=== PATIENT | male | born 1980 | race Caucasian/White ===

== ENCOUNTER 2021-01-30 17:23 | Inpatient (IN) | payer OTHER ==
[~2021-01-30] VITALS: Ht 180.3 cm; Wt 127.0 kg
[~2021-01-30 17:23] MED LIST: GABA600 PO; LISI20 PO; NAPR500 PO; RXHYD5325 PO; TRAM50 PO
[2021-01-30 18:26] LABS: BASOPHILS ABSOLUTE AUTO 0.07 K/mm3 (0.00-0.23); BASOPHILS PERCENT AUTO 1 % (0-2); EOSINOPHILS ABSOLUTE AUTO 0.42 K/mm3 (0.00-0.68); EOSINOPHILS PERCENT AUTO 4 % (0-6); Hematocrit 46.2 % (37.0-53.0); Hemoglobin 16.1 g/dL (13.5-17.5); IMMATURE GRAN PERCENT AUTO 1 % (0-1); LYMPHOCYTES ABSOLUTE AUTO 0.71 K/mm3 (0.84-5.20); LYMPHOCYTES PERCENT AUTO 6 % (21-46); MONOCYTES PERCENT AUTO 4 % (4-13); Mean Corpuscular HGB 34.8 pg (26.0-34.0); Mean Corpuscular HGB Conc 34.8 g/dL (31.5-36.5); Mean Corpuscular Volume 100 fL (80-100); Mean Platelet Volume 8.7 fL (9.1-12.4); NEUTROPHILS ABSOLUTE AUTO 9.48 K/mm3 (1.96-9.15); NEUTROPHILS PERCENT AUTO 84 % (41-73); Platelet Count 241 K/mm3 (150-400); RDW Coefficient Variation 13.5 % (11.7-14.2); RDW Standard Deviation 49.3 fL (35.1-46.3); Red Blood Cell Count 4.63 M/mm3 (4.30-5.90); White Blood Cell Count 11.28 K/mm3 (4.00-11.30)
[2021-01-30 18:53] LABS: Alanine Aminotransfer (ALT/SGP 146 U/L (12-78); Albumin, Blood 3.6 g/dL (3.4-5.0); Albumin/Globulin Ratio 0.8 (0.8-1.8); Alk Phos 181 U/L (50-136); Anion Gap 22 mmol/L (6-16); Aspartate Aminotrans (AST/SGOT 285 U/L (12-37); Bilirubin, Total 1.6 mg/dL (0.1-1.0); Blood Urea Nitrogen 11 mg/dL (8-24); Bun/Creatinine Ratio 12.5 (12.0-20.0); CO2, Blood 15 mmol/L (21-32); Calcium, Blood 9.1 mg/dL (8.5-10.1); Chloride, Blood 92 mmol/L (98-108); Creatinine, Blood 0.88 mg/dL (0.60-1.20); Globulin, Blood 4.5 g/dL (2.2-4.0); Glomerular Filtration Rate >60 (60-); Glucose, Blood 201 mg/dL (70-99); Potassium, Blood 3.8 mmol/L (3.5-5.5); Sodium, Blood 129 mmol/L (136-145); Total Protein, Blood 8.1 g/dL (6.4-8.2)
[2021-01-30 18:54] LABS: Troponin I <0.015 ng/mL (0.000-0.040)
[2021-01-30 20:46] LABS: Base Excess Venous -2.7 mmol/L; PCO2 Venous 32.4 mmHg (38-42); PO2 Venous 168 mmHg (38-42); pH Blood Venous 7.43 (7.34-7.37)
[2021-01-30 22:02] LABS: Magnesium, Blood 1.6 mg/dL (1.6-2.4); Phosphorus, Blood 3.1 mg/dL (2.5-4.9)
[2021-01-30 22:21] LABS: U Amphetamine Screen Not Detected; U Barbituate Screen Not Detected; U Benzodiazapine Screen Not Detected; U Buprenorphine Screen DETECTED; U Cannabinoids Screen Not Detected; U Cocaine Screen Not Detected; U Methadone Screen Not Detected; U Methamphetamine Screen Not Detected; U Opiates Screen Not Detected; U Oxycodone Screen Not Detected; U Phencyclidine Screen Not Detected; U Propoxyphene Screen Not Detected
[2021-01-30 23:10] LABS: Automated CSF RBC Count 0.016 M/mm3 (0-0); Automated CSF WBC Count 0.017 K/mm3 (0-5); RBC Count, CSF 16000 /mm3 (0-0); WBC Count, CSF 17 /mm3 (0-5)
[2021-01-30 23:25] LABS: Glucose, CSF 114 mg/dL (40-70)
[2021-01-30 23:30] LABS: Automated CSF RBC Count 0.068 M/mm3 (0-0); RBC Count, CSF 68000 /mm3 (0-0); WBC Count, CSF 140 /mm3 (0-5)
[2021-01-30 23:53] LABS: Appearance, CSF Cloudy (Clear); Color, CSF Red (No Color); Lymphocytes, CSF 18 % (40-80); Monocytes, CSF 11 % (15-45); Neutrophils, CSF 71 % (0-6)
[2021-01-30 23:55] LABS: Lymphocytes, CSF 7 % (40-80); Monocytes, CSF 1 % (15-45); Neutrophils, CSF 92 % (0-6)
[2021-01-30 23:56] LABS: Appearance, CSF Bloody (Clear); Color, CSF Red (No Color)
[2021-01-31 00:38] LABS: Cryptococcus Neoformans/Gattii Not Detected (NOT DETECT); Enterovirus Not Detected (NOT DETECT); Escherichia Coli K1 Not Detected (NOT DETECT); Haemophilus Influenza Not Detected (NOT DETECT); Herpes Simplex Virus 1 Not Detected (NOT DETECT); Herpes Simplex Virus 2 Not Detected (NOT DETECT); Human Herpesvirus 6 Not Detected (NOT DETECT); Human Parechovirus Not Detected (NOT DETECT); Listeria Monocytogenes Not Detected (NOT DETECT); Neisseria Meningitidis Not Detected (NOT DETECT); Streptococcus Agalactiae Not Detected (NOT DETECT); Streptococcus Pneumoniae Not Detected (NOT DETECT); Varicella Zoster Virus Not Detected (NOT DETECT)
[2021-01-31 01:52] LABS: BASOPHILS ABSOLUTE AUTO 0.06 K/mm3 (0.00-0.23); BASOPHILS PERCENT AUTO 1 % (0-2); EOSINOPHILS ABSOLUTE AUTO 0.01 K/mm3 (0.00-0.68); EOSINOPHILS PERCENT AUTO 0 % (0-6); Hematocrit 42.9 % (37.0-53.0); Hemoglobin 15.2 g/dL (13.5-17.5); IMMATURE GRAN ABSOLUTE AUTO 0.07 K/mm3 (0.00-0.10); IMMATURE GRAN PERCENT AUTO 1 % (0-1); LYMPHOCYTES ABSOLUTE AUTO 1.19 K/mm3 (0.84-5.20); LYMPHOCYTES PERCENT AUTO 12 % (21-46); MONOCYTES ABSOLUTE AUTO 0.62 K/mm3 (0.16-1.47); MONOCYTES PERCENT AUTO 6 % (4-13); Mean Corpuscular HGB 35.1 pg (26.0-34.0); Mean Corpuscular HGB Conc 35.4 g/dL (31.5-36.5); Mean Corpuscular Volume 99 fL (80-100); Mean Platelet Volume 8.3 fL (9.1-12.4); NEUTROPHILS ABSOLUTE AUTO 7.89 K/mm3 (1.96-9.15); NEUTROPHILS PERCENT AUTO 80 % (41-73); Platelet Count 184 K/mm3 (150-400); RDW Coefficient Variation 13.5 % (11.7-14.2); RDW Standard Deviation 49.3 fL (35.1-46.3); Red Blood Cell Count 4.33 M/mm3 (4.30-5.90); White Blood Cell Count 9.84 K/mm3 (4.00-11.30)
[2021-01-31 02:11] LABS: Alanine Aminotransfer (ALT/SGP 119 U/L (12-78); Albumin/Globulin Ratio 0.8 (0.8-1.8); Alk Phos 161 U/L (50-136); Anion Gap 10 mmol/L (6-16); Aspartate Aminotrans (AST/SGOT 200 U/L (12-37); Blood Urea Nitrogen 11 mg/dL (8-24); Bun/Creatinine Ratio 15.8 (12.0-20.0); CO2, Blood 25 mmol/L (21-32); Calcium, Blood 8.6 mg/dL (8.5-10.1); Chloride, Blood 96 mmol/L (98-108); Glomerular Filtration Rate >60 (60-); Glucose, Blood 143 mg/dL (70-99); Potassium, Blood 3.7 mmol/L (3.5-5.5); Sodium, Blood 131 mmol/L (136-145)
--- NOTE | 2021-01-31 05:44 | NUR ---
INFORMED OF PATIENT HIGH BP OF 174/115. PRN METOPROLOL ADDDED TO MED LIST WELL TYLENOL AND ZOFRAN.
--- NOTE | 2021-01-31 06:34 | NUR ---
SHIFT SUMMARY PATIENT ADMITTED TO FLOOR AT APPROXIMETLY 2345. FOUND TO BE A PLESANT MAN WHO IS A&OX4, FOLLOWING COMMANDS WITH NOTABLE BUE TREMORS. COMPLAINS OF TREMORS, MUSCLE SPASMING, DIZZINESS AND WEAKNESS UPON ARRIVAL. CIWA 10-15 ALL SHIFT AND LIBRIUM WORKING WELL TO CONTROL THIS. DID NOT WANT ATIVAN UNLESS "HE NEEDS IT". HYPERTENSIVE AND PRN METOP ADDED AND GIVEN. TACHY IN THE LOW 100'S. ON RA. STATES HE FEELS SHORT OF BREATH SOMETIMES SO O2 PUT ON FOR COMFORT AT TIMES. TOLERATING HEPATIC DIET WITHOUT ISSUE. VOIDING WELL PER URINAL BUT PREFERS BATHROOM WITH SBA. REITERATE TO PATIENT TO TAKE HIS TIME AND SLOW DOWN WITH MOVEMENTS IS STILL UNSTEADY AT TIMES. BED ALARM ON ANF FALL PRECAUTIONS IN PLACE. IV FLUIDS RUNNING PER ORDER. NO ACUTE CONCERNS AT THIS TIME. WILL CONTINUE PLAN OF CARE UNTIL REPORT GIVEN TO DAYSHIFT RN.
--- NOTE | 2021-01-31 07:21 | NUR ---
Pt is alert, oriented, appropriate in conversation. Appears somewhat anxious, impulsive in his movements. Bed alarm is on as noc shift RN and PRICE ECONOMIST reported pt's impulsivity and CIWA score of 13 were concerning for his safety should he attempt OOB independently. Pt has no concerns/needs voiced at this time. Sitting up, self repositioning in bed without apparent difficulty.
--- NOTE | 2021-01-31 07:53 | NUR ---
CIWA Score this morning is 5. He is talking normally, alert and oriented, and cooperative. Sitting up eating breakfast at this time. States he has been having some memory problems, as well as tremors and shakes. 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 Lisinopril 20 mg administered at this time for his elevated blood pressure. Normal sinus rhythm on shelter monitor.
[2021-01-31 09:06] LABS: Source, Urine Clean Catch
[2021-01-31 09:09] LABS: Blood, Urine 1+ (Neg); Glucose Qualitative, Urine Neg (Neg); Ketones, Urine 2+ (Neg); Leukocyte Esterase, Urine 1+ (Neg); Nitrite, Urine Pos (Neg); Protein, Urine 2+ (Neg); Urobilinogen, Urine 3+ (Normal)
[2021-01-31 09:16] LABS: Bilirubin, Urine 2+ (Neg)
[2021-01-31 09:17] LABS: Appearance, Urine Hazy (Clear); Color, Urine Amber (P-Yellow)
[2021-01-31 09:20] LABS: Bacteria Few /hpf; Mucus Heavy (0-Heavy); Red Blood Cells, Urine 0-2 /hpf (0-2); Squamous Epithelial Cells Few /hpf (Few)
--- NOTE | 2021-01-31 09:38 | NUR ---
BLOOD PRESSure improving, now 153/104. Medicated with librium 25 mg for CIWA 5-8; also c/o wheezing, but none noted upon auscultation.
--- NOTE | 2021-01-31 11:10 | NUR ---
CIWA SCORE INCREASED TO 10. ADDITIONAL 25 MG LIBRIUM GIVEN AT THIS TIME. PT IS NOT AGITATED, BUT IS NOW REPORTING VISUAL AND AUDITORY HALLUCINATIONS.
--- NOTE | 2021-01-31 15:22 | NUR ---
Pt is having ongoing intermittent mild confusion, and mild tremors, mild sweats, and now states that he feels anxious and trapped. He states that he wants to leave the hospital. I explained the risks and benefits, and he asked if he would be arrested if he left the hospital. I said no he is free to leave, but it is not recommended. He said that he is worried about his animals at home and wants to hang out with his friends. I tried to encourage him to stay, but he was insistent on leaving. IV and telemetry were removed, and pt dressed himself and collected his belongings. Called a friend to pick him up at the pt admission area. Call to Dr. Lee to advise her of the situation, and she said to let the pt go as he wishes. The pt walked with me to the the pt admission area. He thanked me for the care and said good-bye.
[2021-02-02 09:08] LABS: HBSAG SCREEN Negative (Negative); HEP A AB, IGM Negative (Negative); HEP B CORE AB, IGM Negative (Negative); HEP C VIRUS AB <0.1 (0.0-0.9)
== END 2021-01-31 15:32 | disposition left against medical advice (07) | DRG 872 ==
LOC: ER 17:23 → PCU 22:29
PROVIDERS: Emergency Medicine; Family Medicine; Internal Medicine; Physician Assistant; ADMIT Family Medicine
PROC: 009U3ZX Drainage of Spinal Canal, Percutaneous Approach, Diagnostic (ICD-10-PCS; principal; 2021-01-30)
PROC: 3E0234Z Introduction of Serum, Toxoid and Vaccine into Muscle, Percutaneous Approach (ICD-10-PCS; 2021-01-30)
DX: A41.9 Sepsis, unspecified organism (principal); E87.2 Acidosis; F10.139 Alcohol abuse with withdrawal, unspecified; E87.1 Hypo-osmolality and hyponatremia; R65.20 Severe sepsis without septic shock; I10 Essential (primary) hypertension; Y90.0 Blood alcohol level of less than 20 mg/100 ml; E66.9 Obesity, unspecified; E86.0 Dehydration; F11.21 Opioid dependence, in remission; B09 Unspecified viral infection characterized by skin and mucous membrane lesions; Z23 Encounter for immunization; L56.8 Other specified acute skin changes due to ultraviolet radiation; K70.10 Alcoholic hepatitis without ascites; Z20.822 Contact with and (suspected) exposure to COVID-19; R74.01 Elevation of levels of liver transaminase levels; M19.90 Unspecified osteoarthritis, unspecified site; Z90.89 Acquired absence of other organs; Z98.890 Other specified postprocedural states; Z88.5 Allergy status to narcotic agent; Z88.6 Allergy status to analgesic agent; Z87.891 Personal history of nicotine dependence; Z79.899 Other long term (current) drug therapy
CPT/HCPCS: 36415; 62270; 70450; 71045; 71260; 74177; 80053; 80074; 81001; 82010; 82803; 82945; 83605; 83690; 83735; 83880; 84100; 84145; 84157; 84484; 85025; 87040; 87070; 87086; 87205; 87483; 89051; 90471; 90714; 93005; 93010; 96374-59; 96376-59; 99285-25; A9270; G0480; J1650; J2060; J7030; J7120; Q9967